=== PATIENT | male | born 2000 ===

== ENCOUNTER 2019-05-18 21:09 | Emergency (ER) | payer MEDICAID, SELFPAY ==
[2019-05-18 21:14] VITALS: BP 140/78; PULSE 126; RESP 16; TEMP 36.7; O2SAT 96
--- NOTE | 2019-05-18 21:32 | DI.RAD_ITS ---
SYMPTOM/DIAGNOSIS: COUGH, FEVER, R/O PNEUMONIA PA AND LATERAL CHEST: 05/18 The heart is normal in size. The lungs are clear. The mediastinal structures and pleura appear intact. CONCLUSION: Normal chest.
--- NOTE | 2019-05-18 21:34 | W.ED.GENAD ---
Discharge Plan Disposition Patient Disposition: HOME Condition: Improving Discharge Details Chief Complaint: Sorethroat Clinical Impression: Infectious mononucleosis, Acute streptococcal pharyngitis Primary Care Provider: Petty,Local ED Provider: Ese Westbrook Home Meds and New Rx's Prescriptions: New clindamycin HCl 150 mg capsule 300 mg PO TID 10 Days Qty: 60 RF: 0 No Action No Known Home Meds RF: 0 Discharge Instructions Instructions: Mononucleosis (ED), Pharyngitis (ED) Additional Instructions: Alternate tylenol and motrin as needed and directed for pain. Take the antibiotics until finished. Drink plenty of fluids and get plenty of rest. Follow up with your primary care doctor in 2 days for re-evaluation. Return immediately to the emergency department if you develop any worsening or new concerning symptoms. Discharge Data Discharge Physician: Ese Westbrook Medical Decision Making 18-year-old male with a history of anxiety, depression and recently diagnosed mono who presents with dizziness, headache and sore throat for the past few days, worse tonight with worsening headache and sensitivity to light. States the headache is on the top of his head and the neck pain is in his anterior neck near his lymph nodes worse with swallowing. Denies any posterior headache or posterior neck pain. Heart rate 120s, remainder vitals within normal limits. Afebrile. Patient appears anxious and diaphoretic but otherwise nontoxic. No focal deficits. No meningeal signs. Differential diagnosis includes dehydration associated with mononucleosis, strep pharyngitis, pneumonia, electrolyte abnormality. Also discussed with patient the possibility of meningitis although he has no meningeal signs, but will attempt hydration and steroids, and if no improvement will consider CT head and lumbar puncture. Will check screening labs including lactate, blood cultures as well as chest x-ray and EKG. EKG notes a rate of 101 and sinus with no acute ST T wave findings. 0 --labs reviewed. White blood cell count 19. Anion gap 15. Lactate 0.6. AST 71, ALT 173, AP 261. Swisher +. Rapid strep +. CXR negative. 2250 --patient feels much better and is requesting to go home. He states his headache and photophobia is near resolved. Heart rate 80s. Patient states he would like to go home to sleep in his bed. Discussed again the possibility of meningitis and that as patient is feeling better, this appears less likely, and he would rather hold on CThead/lumbar puncture at this time. Agreeable to stay to finish IVF and recheck BMP to assess anion gap. 2330 --Repeat BMP was obtained and anion gap significantly improved to 12. Patient is requesting to go home. He was given 2 full liters of IV fluids and was ambulatory and appears much more comfortable. Due to associated rash with amoxicillin and mononucleosis, will treat with clindamycin. Dose given here as well as prescription. He is instructed to follow-up with his primary care doctor in 2 days for reevaluation and to return anytime if worse. Medical Records Medical records reviewed: Yes I reviewed the patient's medical records. Imaging Data Radiologic Study: Radiologist's impression: XR Chest, 2 Views EXAM DATE/TIME: 05/18/2019 9:34 PM CLINICAL HISTORY: 18 years old, male; Cough and fever TECHNIQUE: Imaging protocol: XR of the chest, 2 views. COMPARISON: No relevant prior studies available. FINDINGS: Lungs: Unremarkable. No consolidation. Pleural space: Unremarkable. No evidence of pneumothorax. Heart/Mediastinum: Unremarkable. Heart size within normal limits for technique. Bones/joints: Unremarkable. IMPRESSION: No acute findings. Lab Data Lab results reviewed: Yes I reviewed the patient's lab results. 05/18/19 22:00 Blood Blood Culture - Pending 05/18/19 21:40 Blood Blood Culture - Pending Laboratory Tests Range/Units 05/18/19 05/18/19 05/18/19 21:40 21:40 21:40 WBC (4.4-10.8) k/cumm 19.10 H RBC (4.50-6.00) m/cumm 4.98 Hgb (13.5-17.5) g/dL 14.1 Hct (40.0-50.0) % 40.7 MCV (80-95) fL 81.7 MCH (27.0-33.0) pg 28.3 MCHC (32.0-36.0) g/dL 34.6 RDW (11.8-14.1) % 12.9 Plt Count (130-400) x1000/uL 293 MPV (8.0-11.0) fL 9.9 Immature Gran % 0.0 Neutrophils % 50.0 Lymphocytes % 15.0 Atypical Lymphs % 25 Monocytes % 10.0 Eosinophils % 0.0 Basophils % 0.0 Absolute Neutrophils (1.2-6.7) k/cumm 9.55 H Absolute Lymphocytes (1.2-3.4) k/cumm 7.64 H Absolute Monocytes (0.11-0.7) k/cumm 1.91 H Absolute Eosinophils (0.0-0.7) k/cumm 0.00 Absolute Basophils (0.0-0.2) k/cumm 0.00 Differential Comment Manual differential RBC Morphology Normal Sodium (136-145) mmol/L 138 Potassium (3.5-5.1) mmol/L 3.6 Chloride (98-107) mmol/L 99 Carbon Dioxide (21.0-32.0) mmol/L 23.4 Anion Gap (3-11) mmol/L 15.6 H BUN (7-18) mg/dL 12 Creatinine (0.70-1.30) mg/dL 0.90 Estimated GFR/1.73 m2 (mL/min/1.73m2) >= 60.00 Glucose (70-100) mg/dL 107 H Lactate (0.6-1.4) mmol/l Calcium (8.5-10.1) mg/dL 9.4 Total Bilirubin (0.2-1.0) mg/dL 0.4 AST (15-37) U/L 71 H ALT (12-78) U/L 173 H Alkaline Phosphatase (46-116) U/L 261 H Total Protein (6.4-8.2) g/dL 8.0 Albumin (3.4-5.0) g/dL 4.1 Lipase (73-393) U/L 67 L Monoscreen (Negative) Positive Range/Units 05/18/19 05/18/19 22:10 23:05 WBC (4.4-10.8) k/cumm RBC (4.50-6.00) m/cumm Hgb (13.5-17.5) g/dL Hct (40.0-50.0) % MCV (80-95) fL MCH (27.0-33.0) pg MCHC (32.0-36.0) g/dL RDW (11.8-14.1) % Plt Count (130-400) x1000/uL MPV (8.0-11.0) fL Immature Gran % Neutrophils % Lymphocytes % Atypical Lymphs % Monocytes % Eosinophils % Basophils % Absolute Neutrophils (1.2-6.7) k/cumm Absolute Lymphocytes (1.2-3.4) k/cumm Absolute Monocytes (0.11-0.7) k/cumm Absolute Eosinophils (0.0-0.7) k/cumm Absolute Basophils (0.0-0.2) k/cumm Differential Comment RBC Morphology Sodium (136-145) mmol/L 141 Potassium (3.5-5.1) mmol/L 3.7 Chloride (98-107) mmol/L 106 Carbon Dioxide (21.0-32.0) mmol/L 22.9 Anion Gap (3-11) mmol/L 12.1 H BUN (7-18) mg/dL 10 Creatinine (0.70-1.30) mg/dL 0.85 Estimated GFR/1.73 m2 (mL/min/1.73m2) >= 60.00 Glucose (70-100) mg/dL 103 H Lactate (0.6-1.4) mmol/l 0.6 Calcium (8.5-10.1) mg/dL 8.4 L Total Bilirubin (0.2-1.0) mg/dL AST (15-37) U/L ALT (12-78) U/L Alkaline Phosphatase (46-116) U/L Total Protein (6.4-8.2) g/dL Albumin (3.4-5.0) g/dL Lipase (73-393) U/L Monoscreen (Negative) ECG Data Attestation: I personally reviewed and interpreted this ECG (s) as follows: Interpretation: rate of 101, sinus, no acute ST elevation or depression. QTc 428. QRS 91. HPI General Mode of arrival: ambulatory. Date/Time Provider Initiated Documentation: 05/18/19 21:32. Limitations to Documentation: no limitations. Information obtained by: patient and family. HPI Narrative: Patient is a 18-year-old male with a history of anxiety, depression and recently diagnosed mononucleosis who presents with dizziness, sore throat and headache for the past few days, worse tonight. Patient saw his primary care doctor 1 week ago and diagnosed with mono. He states he was not given any medication. He states he has not been eating much over the past few days due to sore throat and decreased appetite. He states his headache is on the top of his head and feels sharp. He states he has anterior neck pain near his lymph nodes when he swallows but denies any posterior headache or posterior neck pain. He admits to sensitivity to light tonight. He states tonight he was attempting to lay down and had worsening dizziness and headache. He states that he has been sick frequently over the past several months with cough, sinus congestion which improves and then returns. He has not seen his primary care doctor for any of these episodes in the last few months and is not taking any antibiotics. He denies any recent tick bite or travel. Last dose of ibuprofen 30 minutes prior to arrival tonight. He also states that he smokes marijuana 3 times weekly but denies any other drug, alcohol or tobacco use. Related Data Home Medications Medication Instructions Recorded Confirmed Unknown [No Known Home Meds] 05/18/19 05/18/19 clindamycin HCl 300 mg PO TID 10 Days #60 cap 05/18/19 Previous Rx's Medication Instructions Recorded clindamycin HCl 300 mg PO TID 10 Days #60 cap 05/18/19 Allergies Allergy/AdvReac Type Severity Reaction Status Date / Time No Known Allergies Allergy Unverified 05/18/19 21:16 General Stated Complaint: Sorethroat NINA: 3 Review of Systems Review of Systems All systems reviewed & are unremarkable except as noted in HPI and below Constitutional Reports as per HPI, Reports body ache(s), Denies chills, Reports fatigue, Denies fever(s), Reports headache(s), Reports malaise and Reports poor appetite Eyes Denies blurry vision ENT Denies dizziness, Reports headache(s), Reports sore throat and Denies throat swelling Cardiovascular Denies chest pain and Denies dyspnea Respiratory Reports cough and Denies dyspnea Gastrointestinal Denies abdominal pain, Denies diarrhea, Reports nausea and Denies vomiting Genitourinary Denies hematuria and Denies dysuria Musculoskeletal Denies back pain and Denies numbness Integumentary/Breasts Denies lesions and Denies rash Neurologic Denies dizziness, Reports headache(s), Denies focal weakness and Denies numbness Endocrine Reports fatigue Allergic/Immunologic Denies throat swelling FOR[facility]LY [facility] Medical History Mononucleosis (Acute) Anxiety (Chronic) Depression (Chronic) Surgical History No significant past surgical history (Acute) Social History Smoking/Tobacco Use Status: Never Alcohol Intake: never Drug use: Occasionally Substance use type: marijuana Additional Social history: pt is not alone, interacts well with parents at bedside Exam Const General: cooperative, anxious and diaphoretic Orientation: alert, awake and oriented x3 HENMT Head: normal to inspection Ears: hearing grossly normal bilaterally, external ears normal and TM's normal bilaterally General nose exam: external nose normal Face and sinus: normal facial exam and sinus tenderness maxillary (left ) Mouth: oral mucosae normal Teeth and gingiva: dentition normal Throat: uvula midline, no peritonsillar masses and posterior oropharynx abnormal edema and erythema; no exudates Eyes General: appearance normal, both eyes and all related structures Eyelids: eyelids normal Pupils: PERRL EOM: EOM intact bilaterally Neck Neck: normal visual inspection Lymphatic: no lymphadenopathy noted Chest Chest: normal inspection of the chest Resp Effort & Inspection: normal respiratory effort and able to speak in complete sentences Auscultation: clear to auscultation bilaterally Cardio Rate: tachycardic Rhythm: regular rhythm GI Inspection: normal to inspection Palpation: soft, not firm, no guarding, no hepatosplenomegaly, no masses and nontender Auscultation: normal bowel sounds Back/Spine/Pelvis Back: no CVA tenderness Skin General skin exam: no rashes or lesions noted Neuro General: alert and awake Cranial Nerves: CN's II-XI intact bilaterally Cognition: normal cognition Speech: speech normal Gait: normal gait Motor: muscle tone normal throughout and strength 5/5 throughout Sensory Exam: no sensory deficits noted Extrem General: normal to inspection, full ROM and normal capillary refill Psych Appearance: grossly normal Mental Status: mental status grossly normal Speech and Movement: speech and movement normal Affect: anxious affect Thought Process: normal Course Vital Signs Temperature 98.1 F 05/18/19 21:14 Pulse 126 H 05/18/19 21:14 Respiratory Rate 16 05/18/19 21:14 Blood Pressure 140/78 05/18/19 21:14 Pulse Oximetry 96 05/18/19 21:14 Temperature 98.1 F 05/18/19 21:14 Temperature Source Skin 05/18/19 21:14 Pulse 126 H 05/18/19 21:14 Respiratory Rate 16 05/18/19 21:14 Respiratory Effort Short of Breath 05/18/19 21:16 Blood Pressure 140/78 05/18/19 21:14 Pulse Oximetry 96 05/18/19 21:14 Oxygen Delivery Method Room Air 05/18/19 21:14 Oxygen Flow Rate 0 05/18/19 21:14
[2019-05-18 21:47] LABS: HCT 40.7 % (40.0-50.0); HGB 14.1 g/dL (13.5-17.5); Mean Corp. HGB Concentration 34.6 g/dL (32.0-36.0); Mean Corpuscular Hemoglobin 28.3 pg (27.0-33.0); Mean Corpuscular Volume 81.7 fL (80-95); Mean Platelet Volume 9.9 fL (8.0-11.0); Platelet Count 293 x1000/uL (130-400); RBC 4.98 m/cumm (4.50-6.00); RBC Distribution Width 12.9 % (11.8-14.1)
[2019-05-18 21:50] LABS: Mono Screening POSITIVE (Negative)
[2019-05-18] MEDS: Normal Saline 1,000 ML 1000 ML IV ×2 (21:55→22:31)
[2019-05-18] MEDS: diphenhydrAMINE 50 MG/ML VIAL 25 MG IVP (21:56)
[2019-05-18] MEDS: Prochlorperazine 10 MG/2 ML VIAL IVP (21:59)
[2019-05-18] MEDS: Dexamethasone 10 MG/ML VIAL IVP (22:01)
[2019-05-18 22:02] LABS: ALT 173 U/L (12-78); AST 71 U/L (15-37); Albumin 4.1 g/dL (3.4-5.0); Alkaline Phosphatase 261 U/L (46-116); Anion Gap 15.6 mmol/L (3-11); BUN 12 mg/dL (7-18); Bilirubin, Total 0.4 mg/dL (0.2-1.0); CO2 23.4 mmol/L (21.0-32.0); Calcium 9.4 mg/dL (8.5-10.1); Chloride 99 mmol/L (98-107); Glucose 107 mg/dL (70-100); Lipase 67 U/L (73-393); Potassium 3.6 mmol/L (3.5-5.1); Sodium 138 mmol/L (136-145)
[2019-05-18] MEDS: Acetaminophen 500 MG TAB 1000 MG PO (22:10)
[2019-05-18 22:19] LABS: Lactate-non-spesis 0.6 mmol/l (0.6-1.4)
[2019-05-18 22:20] LABS: Absolute Lymphocyte Count 7.64 k/cumm (1.2-3.4); Absolute Monocyte Count 1.91 k/cumm (0.11-0.7); Absolute Neutrophil Count 9.55 k/cumm (1.2-6.7); Atypical Lymphocytes % 25; Diff Comment Manual Differential; RBC Morphology Normal
--- NOTE | 2019-05-18 22:30 | DI.VRAD_ITS ---
EXAM: XR Chest, 2 Views EXAM DATE/TIME: 05/18/2019 9:34 PM CLINICAL HISTORY: 18 years old, male; Cough and fever TECHNIQUE: Imaging protocol: XR of the chest, 2 views. COMPARISON: No relevant prior studies available. FINDINGS: Lungs: Unremarkable. No consolidation. Pleural space: Unremarkable. No evidence of pneumothorax. Heart/Mediastinum: Unremarkable. Heart size within normal limits for technique. Bones/joints: Unremarkable. IMPRESSION: No acute findings. Dictated and Authenticated by: Sim Chin MD. Ordering:FILOMENA Mulligan MD
[2019-05-18 22:32] VITALS: BP 132/68; PULSE 87; RESP 16; TEMP 36.8; O2SAT 95
[2019-05-18] MEDS: Clindamycin 150 MG CAP 300 MG PO (23:16)
[2019-05-18 23:23] LABS: Anion Gap 12.1 mmol/L (3-11); BUN 10 mg/dL (7-18); CO2 22.9 mmol/L (21.0-32.0); CREATININE 0.85 mg/dL (0.70-1.30); Calcium 8.4 mg/dL (8.5-10.1); Chloride 106 mmol/L (98-107); Glucose 103 mg/dL (70-100); Potassium 3.7 mmol/L (3.5-5.1); Sodium 141 mmol/L (136-145)
[2019-05-18 23:35] VITALS: BP 131/75; PULSE 92; RESP 18; O2SAT 97
== END 2019-05-18 23:37 | disposition home or self-care (01) ==
PROVIDERS: Emergency Provider Physician Assistant; PCP Student in an Organized Health Care Education/Training Program
DX: B27.90 Infectious mononucleosis, unspecified without complication (principal); J02.0 Streptococcal pharyngitis; F41.8 Other specified anxiety disorders
CPT/HCPCS: 36415; 80048; 80053; 81025; 83690; 87040; 87880; 93005; 96361; 96374; 96375; 99285; 71046; 83605; 85025; 86308; 93010; J0780; J1100; J1200